=== PATIENT | male | born 1980 | race African-American/Black ===

== ENCOUNTER 2016-09-02 04:48 | Emergency (ER) | payer SELFPAY ==
[~2016-09-02] VITALS: Ht 188 cm; Wt 95.0 kg
[~2016-09-02 04:48] MED LIST: AZIT250T3 PO
[2016-09-02 04:50] VITALS: BP 132/77; PULSE 84; RESP 18; TEMP 98.9; O2SAT 99
[2016-09-02] MEDS ORDERED: HYDR-3534 PO (05:00)
[2016-09-02] MEDS ORDERED: PERI0.126 SWISH-SPIT (05:13)
[2016-09-02] MEDS ORDERED: IBUP-232 PO (05:13)
[2016-09-02] MEDS ORDERED: PENI500T PO (05:13)
--- NOTE | 2016-09-02 05:13 | PD ---
HPI Chief Complaint: Oral / Dental Pain or Problem Time Seen by Provider: 05:10 Travel History International Travel<30 days: No Contact w/Intl Traveler<30days: No Traveled to known affect area: No History of Present Illness HPI 36-year-old male presents for short in for evaluation of right sided maxillary first molar pain. Patient states he has had a hole in the tooth for over a year. He states he recently started hurting. Pain is an 8 out of 10. Radiates to his cheek and ear. Denies any trauma. No fever or chills. No other symptoms to report. PFSH Past Medical History Medical History: Denies Significant Hx Diminished Hearing: No Past Surgical History Body Medical Devices: SPRAINED ANKLE; OLD HEAD LAC AT AGE 10 Social History Alcohol Use: Yes Tobacco Use: Yes (04/23 PPD) Substance Use: No Allergies-Medications (Allergen,Severity, Reaction): Coded Allergies: Aspirin (Verified Allergy, Mild, RASH AND ITCHY, 09/02/16) Reported Meds & Prescriptions Reported Meds & Active Scripts Active Ibuprofen 600 Mg Tab 600 Mg PO Q8HR PRN Peridex Liq (Chlorhexidine Gluconate (Mouth) Liq) 0.12% Soln 15 Ml SWISH-SPIT BID Penicillin V Potassium 500 Mg Tab 500 Mg PO Q6H 10 Days Reported Lortab (Hydrocodone-Acetaminophen) 7.5-325 Mg Tab 1 Tab PO Q6H PRN Review of Systems Except as stated in HPI: all other systems reviewed are Neg Physical Exam Narrative GENERAL: Well-nourished, well-developed male patient. in no acute distress SKIN: Focused skin assessment warm/dry. Without erythema or edema HEAD: Normocephalic. EYES: No scleral icterus. No injection or drainage. DENTAL: No loose or chipped teeth. Generalized poor dentition. The right maxillary first molar has a dental care and and is tender to touch. There is no abscess identified however the gingiva is erythematous and edematous. No malocclusion. NECK: Supple, trachea midline. No JVD or lymphadenopathy. CARDIOVASCULAR: Regular rate and rhythm without murmurs, gallops, or rubs. RESPIRATORY: Breath sounds equal bilaterally. No accessory muscle use. MUSCULOSKELETAL: No cyanosis, or edema. BACK: Nontender without obvious deformity. No CVA tenderness. Data Data Last Documented VS Vital Signs Date Time Temp Pulse Resp B/P Pulse Ox O2 Delivery O2 Flow Rate FiO2 09/02/16 04:50 98.9 84 18 132/77 99 Orders Ketorolac Inj (Toradol Inj) (09/02/16 05:15) MDM Medical Decision Making Medical Screen Exam Complete: Yes Emergency Medical Condition: Yes Medical Record Reviewed: Yes Differential Diagnosis Dental caries versus pulpitis versus gingivitis versus periodontal disease Narrative Course 36-year-old male presents to emergency department for evaluation of dental pain. Patient does have a large cavity with associated gingival erythema and edema. He'll be started on oral antibiotics. He agrees to return immediately with any acute worsening of symptoms. 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 Referrals: Dentist Primary Care Physician Patient Instructions: Dental Caries (ED), General Instructions Additional Instructions: It is important that you seek dental evaluation Follow-up with a primary care provider Return immediately with any acute worsening of symptoms Med/Other Pt SpecificInfo: Prescription(s) given Scripts Ibuprofen 600 Mg [id number] Mg PO Q8HR PRN (PAIN) #30 TAB Ref 0 Prov:Flor Hager 09/02/16 Chlorhexidine Gluconate (Mouth) Liq (Peridex Liq)0.12% Soln15 Ml SWISH-SPIT BID #473 ML Ref 0 Prov:Flor Hager 09/02/16 Penicillin V Potassium 500 Mg [id number] Mg PO Q6H 10 Days Ref 0 Prov:Flor Hager 09/02/16 Disposition: 01 DISCHARGE HOME Condition: Stable Flor Hager September 02, 2016 05:13
[2016-09-02] MEDS ORDERED: KETOROLAC TROMETHAMINE 60 MG/2 ML (IM) VIAL IM ONE (05:15)
== END 2016-09-02 05:52 | disposition home or self-care (01) ==
LOC: NEPD 04:48
DX: K02.9 Dental caries, unspecified (principal); K05.10 Chronic gingivitis, plaque induced; F17.210 Nicotine dependence, cigarettes, uncomplicated
CPT/HCPCS: 96372; 99282; J1885

== ENCOUNTER 2017-05-15 00:48 | Emergency (ER) | payer SELFPAY ==
[~2017-05-15] VITALS: Ht 188 cm; Wt 85.0 kg
[~2017-05-15 00:48] MED LIST changes: -AZIT250T3 PO; +HYDR-3534 PO; +IBUP-232 PO; +PENI500T PO; +PERI0.126 SWISH-SPIT
[2017-05-15 00:50] VITALS: BP 141/78; PULSE 90; RESP 16; TEMP 98.7; O2SAT 96
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
== END 2017-05-15 02:30 | disposition left against medical advice (07) ==
LOC: NED 00:48
DX: M79.89 Other specified soft tissue disorders (principal); Z53.21 Procedure and treatment not carried out due to patient leaving prior to being seen by health care provider
CPT/HCPCS: 73130; 99281